=== PATIENT | female | born 1950 | race Caucasian/White ===

== ENCOUNTER 2017-06-23 09:57 | Day surgery (SDC) ==
[2017-06-23] MEDS ORDERED: LIDOCAINE 1% 20 ML MDV ID STA (10:57)
[2017-06-23] MEDS ORDERED: LIDOCAINE HCL 2% LUER-JET ONE (12:15)
[2017-06-23] MEDS ORDERED: DIPRIVAN 20 ML VIAL IVP ONE (12:15)
[2017-06-23] MEDS ORDERED: VERSED ONE (12:15)
[2017-06-23 16:10] VITALS: BP 112/56; TEMP 98.6
--- NOTE | 2017-06-24 11:46 | OP ---
PROCEDURE: COLONOSCOPY TO THE CECUM WITH BIOPSY AND SNARE POLYPECTOMY. ENDOSCOPIST: Antonia PULIDO M.D. INDICATION: HISTORY OF ULCERATIVE COLITIS INSTRUMENT: [employer]-[id number]. MEDICATION: PER ANESTHESIA. PROCEDURE: The patient was positioned for colonoscopy. The digital rectal exam was negative. The colonoscope was inserted through the anus and advanced to the cecum. The cecum was identified using the ileocecal valve and the appendiceal orifice as landmarks. The scope was slowly withdrawn through an adequately prepped colon. [place] Bowel Prep Score of 9. Very difficult reaching the cecum with looping being noted. Biopsies were obtained in the cecum, ascending, hepatic flexure, transverse colon with multiple polyps, 60cm, 50cm, 40cm, 30m, 20m and the rectum. At 70cm in the transverse colon segment we found a 3mm raise area that I removed using cold snare polypectomy. We trapped normal mucosa around this and avulsed the entire area. The retroflex exam was otherwise normal. There was no colitis noted on this exam. Withdraw time 17 minutes and 33 seconds. PLAN: 1. Review pathology 2. Repeat exam in one year if this area at 70cm is an adenomatous or two years if it is negative for adenomatous change. CC: Dr. Andrea MAYBERRY
== END 2017-06-23 13:40 | disposition home or self-care (01) ==
LOC: SURG 09:57
PROVIDERS: ATTEND Internal Medicine Gastroenterology
DX: K63.5 Polyp of colon (principal); Z87.19 Personal history of other diseases of the digestive system